=== PATIENT | female | born 1995 | race Caucasian/White ===

== ENCOUNTER → 2017-01-09 | Outpatient (CLI) | payer SELFPAY ==
--- NOTE | 2017-01-09 17:40 | RADIOLOGY REPORT (SQ) ---
EXAM DESCRIPTION: ANKLE LEFT COMPLETE COMPLETED DATE/TIME: 01/09/2017 5:20 pm REASON FOR STUDY: OTHER SPECIFIED JOINT DISORDERS, LEFT ANKLE AND FOOT M25.872 OTHER SPECIFIED JOIN T DISORDERS, LEFT ANKLE AND FOOT COMPARISON: None. NUMBER OF VIEWS: Three views. TECHNIQUE: AP, lateral, and oblique radiographic images acquired of the left ankle. LIMITATIONS: Lateral film is rotated FINDINGS: MINERALIZATION: Normal. BONES: No acute fracture or dislocation. No worrisome bone lesions. JOINTS: Lateral film is rotated. Ankle joint effusion could not be evaluated SOFT TISSUES: No soft tissue swelling. No foreign body. OTHER: No other significant finding. IMPRESSION: No acute fracture or malalignment TECHNICAL DOCUMENTATION: JOB ID: [id number] [employer]- All Rights Reserved
== END ==
LOC: OD 17:07
PROVIDERS: ATTEND Internal Medicine
DX: M25.572 Pain in left ankle and joints of left foot (principal)

== ENCOUNTER 2017-09-15 21:57 | Emergency (ER) | payer OTHER, MEDICAID ==
[2017-09-15 22:20] VITALS: BP 105/75
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
[2017-09-15] MEDS ORDERED: ACETAMINOPHEN 325 MG TABLET PO ONE (22:46)
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
== END 2017-09-16 00:22 | disposition home or self-care (01) ==
LOC: ER 21:57
DX: S16.1XXA Strain of muscle, fascia and tendon at neck level, initial encounter (principal); S40.012A Contusion of left shoulder, initial encounter; R51 Headache; V43.52XA Car driver injured in collision with other type car in traffic accident, initial encounter; Z90.49 Acquired absence of other specified parts of digestive tract
CPT/HCPCS: 72050; 99284

== ENCOUNTER 2019-09-26 17:39 | Emergency (ER) | payer MEDICAID, OTHER ==
[2019-09-26] MEDS ORDERED: NORMAL SALINE 1000 ML 1,000 ML IV PRN (18:20)
[2019-09-26] MEDS ORDERED: ONDANSETRON HCL INJ/PF 4 MG/2 ML SDV IV ONE (18:20)
--- NOTE | 2019-09-26 18:27 | ER Document Report ---
ED Medical Screen (RME) - General Chief Complaint: Vomiting Stated Complaint: FEVER,VOMITING Time Seen by Provider: 09/26/19 18:18 Primary Care Provider: KYLEE CHILD MD [Primary Care Provider] - Follow up as needed Information source: Patient TRAVEL OUTSIDE OF THE [place] IN LAST 30 DAYS: No - HPI Patient complains to provider of: Abdominal pain with nausea and vomiting Onset: Yesterday Onset/Duration: Sudden Quality of pain: Achy, Cramping, Pressure - Related Data Allergies/Adverse Reactions: azithromycin [Azithromycin] Allergy (Severe, Verified 07/08/16 23:25) codeine [Codeine] Allergy (Severe, Verified 07/08/16 23:25) guaifenesin [From Robitussin A-C] Allergy (Severe, Verified 07/08/16 23:25) Penicillins Allergy (Severe, Verified 07/08/16 23:25) Difficulty breathing amitriptyline Allergy (Verified 09/26/19 18:02) doxycycline [Doxycycline] Allergy (Verified 07/08/16 23:25) erythromycin base [Erythromycin Base] Allergy (Verified 07/08/16 23:25) influenza virus vaccine tri-split 2 [From Fluarix [id number] (PF)] Allergy (Verified 07/08/16 23:25) Home Medications: Singulair Past Medical History - Social History Frequency of alcohol use: None Drug Abuse: None Pulmonary Medical History: Reports: Hx Asthma, Hx Bronchitis, Hx Pneumonia Denies: Hx Tuberculosis Neurological Medical History: Denies: Hx Seizures Renal/ Medical History: Denies: Hx Peritoneal Dialysis GI Medical History: Reports: Hx Gastroesophageal Reflux Disease Musculoskeltal Medical History: Reports Hx Musculoskeletal Deformity, Reports Hx Musculoskeletal Trauma - right ankle Psychiatric Medical History: Reports: Hx Anxiety, Hx Obsessive Compulsive Disorder Traumatic Medical History: Reports: Hx Fractures - left ankle Past Surgical History: Reports: Hx Abdominal Surgery - retained stone, Hx Adenoidectomy, Hx Cholecystectomy, Hx Orthopedic Surgery - right ankle, Hx Tonsillectomy - tonsil/adenoids at 6 yrs old. Denies: Hx Hysterectomy, Hx Pacemaker - Immunizations Immunizations up to date: Yes Hx Diphtheria, Pertussis, Tetanus Vaccination: Yes Physical Exam - Vital signs Vitals: Temp Pulse Resp BP Pulse Ox 101 F H 122 H 16 106/76 95 09/26/19 17:43 09/26/19 17:43 09/26/19 17:43 09/26/19 17:43 09/26/19 17:43 - Abdominal Tenderness: Tender Course - Vital Signs Vital signs: Temp Pulse Resp BP Pulse Ox 101 F H 122 H 16 106/76 95 09/26/19 17:43 09/26/19 17:43 09/26/19 17:43 09/26/19 17:43 09/26/19 17:43 Doctor's Discharge - Discharge Referrals: KYLEE CHILD MD [Primary Care Provider] - Follow up as needed
[2019-09-26] MEDS ORDERED: ONDANSETRON HCL 8 MG TABLET PO ONE (18:38)
[2019-09-26 18:53] LABS: HEMATOCRIT 40.4 % (36.0-47.0); HEMOGLOBIN 13.9 g/dL (12.0-15.5); MEAN CORPUSCULAR HEMOGLOBIN 30.6 pg (27.0-33.4); MEAN CORPUSCULAR HGB CONC 34.3 g/dL (32.0-36.0); MEAN CORPUSCULAR VOLUME 89 fl (80-97); PLATELET COUNT 237 10^3/uL (150-450); RED BLOOD COUNT 4.54 10^6/uL (3.72-5.28); RED CELL DISTRIBUTION WIDTH 12.7 % (11.5-14.0); WHITE BLOOD COUNT 12.3 10^3/uL (4.0-10.5)
[2019-09-26 19:09] LABS: ALBUMIN 4.9 g/dL (3.5-5.0); ALKALINE PHOSPHATASE 74 U/L (38-126); ANION GAP 11 (5-19); ASPARTATE AMINO TRANSFERASE 25 U/L (14-36); BILIRUBIN,TOTAL 0.7 mg/dL (0.2-1.3); BLOOD UREA NITROGEN 10 mg/dL (7-20); CALCIUM 9.6 mg/dL (8.4-10.2); CARBON DIOXIDE 27 mmol/L (22-30); CHLORIDE 100 mmol/L (98-107); GLUCOSE 106 mg/dL (75-110); POTASSIUM 4.3 mmol/L (3.6-5.0); TOTAL PROTEIN 7.8 g/dL (6.3-8.2)
[2019-09-26 19:18] LABS: ABSOLUTE MONOCYTES # (MANUAL) 0.5 10^3/uL (0.1-1.4); BASOPHILS % (MANUAL) 0 % (0-2); EOSINOPHILS % (MANUAL) 0 % (0-6); LYMPHOCYTES % (MANUAL) 8 % (13-45); MONOCYTES % (MANUAL) 4 % (3-13); SEGMENTED NEUTROPHILS % (MAN) 88 % (42-78); TOTAL CELLS COUNTED 100
[2019-09-26 19:21] LABS: PLATELET COMMENT ADEQUATE; RBC MORPHOLOGY COMMENT NORMO-CYTIC/CHROMIC
[2019-09-26] MEDS ORDERED: KETOROLAC TROMETHAMINE INJ/PF 30 MG/1 ML SDV IV ONE (19:55)
--- NOTE | 2019-09-26 19:58 | ER Document Report ---
ED General - General Chief Complaint: Vomiting Stated Complaint: FEVER,VOMITING Time Seen by Provider: 09/26/19 18:18 Primary Care Provider: KYLEE CHILD MD [Primary Care Provider] - Follow up as needed Notes: Patient is a 23-year-old white female with a past medical history significant for prior multiple right-sided ovarian cysts with surgical removal, appendectomy and cholecystectomy who presents to the emergency department with a chief complaint of feeling "sick". Patient reports she was not feeling very well last night, was achy all over notes that her grandmother gave her ibuprofen before bed. She states this morning upon waking she felt worse. Describes widespread body aches, sore throat, cough and abdominal pain associated with nausea and vomiting. She denies any diarrhea or constipation. She denies any recent travel or known sick contacts. Last dose of antipyretics this morning at 8 AM. Denies any urinary complaints. TRAVEL OUTSIDE OF THE [place] IN LAST 30 DAYS: No - Related Data Allergies/Adverse Reactions: azithromycin [Azithromycin] Allergy (Severe, Verified 07/08/16 23:25) codeine [Codeine] Allergy (Severe, Verified 07/08/16 23:25) guaifenesin [From Robitussin A-C] Allergy (Severe, Verified 07/08/16 23:25) Penicillins Allergy (Severe, Verified 07/08/16 23:25) Difficulty breathing amitriptyline Allergy (Verified 09/26/19 18:02) doxycycline [Doxycycline] Allergy (Verified 07/08/16 23:25) erythromycin base [Erythromycin Base] Allergy (Verified 07/08/16 23:25) influenza virus vaccine tri-split 2 [From Fluarix [id number] (PF)] Allergy (Verified 07/08/16 23:25) Home Medications: Singulair Past Medical History - General Information source: Patient - Social History Smoking Status: Never Smoker Frequency of alcohol use: None Drug Abuse: None Family History: Reviewed & Not Pertinent Patient has suicidal ideation: No Patient has homicidal ideation: No Pulmonary Medical History: Reports: Hx Asthma, Hx Bronchitis, Hx Pneumonia Denies: Hx Tuberculosis Neurological Medical History: Denies: Hx Seizures Renal/ Medical History: Denies: Hx Peritoneal Dialysis GI Medical History: Reports: Hx Gastroesophageal Reflux Disease Musculoskeletal Medical History: Reports Hx Musculoskeletal Deformity, Reports Hx Musculoskeletal Trauma - right ankle Psychiatric Medical History: Reports: Hx Anxiety, Hx Obsessive Compulsive Disorder Traumatic Medical History: Reports: Hx Fractures - left ankle Past Surgical History: Reports: Hx Abdominal Surgery - retained stone, Hx Adenoidectomy, Hx Cholecystectomy, Hx Orthopedic Surgery - right ankle, Hx Tonsillectomy - tonsil/adenoids at 6 yrs old. Denies: Hx Hysterectomy, Hx Pacemaker - Immunizations Immunizations up to date: Yes Hx Diphtheria, Pertussis, Tetanus Vaccination: Yes Review of Systems - Review of Systems Constitutional: Chills, Fever EENT: Throat pain Respiratory: Cough Gastrointestinal: Abdominal pain, Nausea, Vomiting Genitourinary: No symptoms reported Female Genitourinary: Irregular period Physical Exam - Vital signs Vitals: Temp Pulse Resp BP Pulse Ox 101 F H 122 H 16 106/76 95 09/26/19 17:43 09/26/19 17:43 09/26/19 17:43 09/26/19 17:43 09/26/19 17:43 - General General appearance: Appears well, Alert In distress: None Notes: Appears ill, nontoxic - HEENT Head: Normocephalic, Atraumatic Eyes: Normal Conjunctiva: Normal Extraocular movements intact: Yes Eyelashes: Normal Pupils: PERRL Ears: Normal External canal: Normal Tympanic membrane: Normal Nasal: Normal Mouth/Lips: Normal Mucous membranes: Normal Pharynx: Other - Injected posterior pharynx without exudate. No edema. Uvula midline without edema or erythema. Airway patent. Patient handling secretions well. No sublingual or submental swelling. No trismus. Neck: Anterior cervical chain - Tender - Respiratory Respiratory status: No respiratory distress Chest status: Nontender Breath sounds: Normal Chest palpation: Normal - Cardiovascular Rhythm: Regular Heart sounds: Normal auscultation - Abdominal Inspection: Normal Distension: No distension Bowel sounds: Normal Tenderness: Tender - Right lower quadrant Organomegaly: No organomegaly - Back Back: No: CVA tenderness - Neurological Neuro grossly intact: Yes Cognition: Normal Orientation: AAOx4 Sophy Coma Scale Eye Opening: Spontaneous Vidor Coma Scale Verbal: Oriented Sophy Coma Scale Motor: Obeys Commands Vidor Coma Scale Total: 15 Speech: Normal - Psychological Associated symptoms: Normal affect, Normal mood - Skin Skin Temperature: Warm Skin Moisture: Dry Skin Color: Normal Course - Re-evaluation Re-evalutation: 09/26/19 23:02 Reevaluation at this time, patient is resting comfortably in the room. She looks and reports that she feels better. A pulse recheck at this time shows her to be at 112 bpm. Her heart rate is improving gradually. Her work-up is lar dorothy unremarkable. Pending swab cultures. Suspect a viral syndrome. Counseled her at length regarding the importance of outpatient follow-up and advised she return here or any ER immediately with any new, persistent or worsening symptoms. She and her grandmother verbalized understood and agreed. She will institute a clear liquid diet for the next 24 hours with a slow gradual return to a brat diet and then normal diet as tolerated. Sent home with a prescription for Zofran. - Vital Signs Vital signs: Temp Pulse Resp BP Pulse Ox 100.4 F 127 H 14 103/50 L 98 09/26/19 21:41 09/26/19 21:41 09/26/19 21:41 09/26/19 21:41 09/26/19 21:41 - Laboratory Result Diagrams: 09/26/19 18:30 09/26/19 18:30 Laboratory results interpreted by me: 09/26/19 09/26/19 18:30 20:10 WBC 12.3 H Seg Neuts % (Manual) 88 H Lymphocytes % (Manual) 8 L Abs Neuts (Manual) 10.8 H Urine Protein 30 H Discharge - Discharge Clinical Impression: Viral syndrome Fever Qualifiers: Fever type: unspecified Qualified Code(s): R50.9 - Fever, unspecified Abdominal pain Qualifiers: Abdominal location: unspecified location Qualified Code(s): R10.9 - Unspecified abdominal pain Nausea and vomiting Qualifiers: Vomiting type: unspecified Vomiting Intractability: unspecified Qualified Code(s): R11.2 - Nausea with vomiting, unspecified Condition: Stable Disposition: HOME, SELF-CARE Instructions: Viral Syndrome ([facility]) Additional Instructions: Follow-up with your regular doctor in 2 to 3 days for reevaluation. Return here or any ER immediately with any new, persistent or worsening symptoms. Prescriptions: Ondansetron [Zofran Odt 4 mg Tablet] 4 mg PO Q6 PRN #30 tab.rapdis PRN Reason: Referrals: KYLEE CHILD MD [Primary Care Provider] - Follow up as needed
--- NOTE | 2019-09-26 20:01 | RADIOLOGY REPORT (SQ) ---
EXAM DESCRIPTION: CT ABD/PELVIS NO ORAL OR IV COMPLETED DATE/TIME: 09/26/2019 7:36 pm REASON FOR STUDY: pain COMPARISON: 07/12/2016 TECHNIQUE: CT scan of the abdomen and pelvis performed without intravenous or oral contrast. Images reviewed with lung, soft tissue, and bone windows. Reconstructed coronal and sagittal MPR images revi ewed. All images stored on PACS. All CT scanners at this facility use dose modulation, iterative reconstruction, and/or weight based d osing when appropriate to reduce radiation dose to as low as reasonably achievable (ALARA). [facility]: Dose Right [facility]: CareDose [facility]: Dose Right [facility]: Teradose 4D [facility]: Smart [employer] RADIATION DOSE: CT Rad equipment meets quality standard of care and radiation dose reduction techniq ues were employed. CTDIvol: 4.9 mGy. DLP: 266 mGy-cm.mGy. LIMITATIONS: None. FINDINGS: LOWER CHEST: No significant findings. No nodules or infiltrates. NON-CONTRASTED LIVER, SPLEEN, ADRENALS: Evaluation limited by lack of IV contrast. No identified sign ificant masses. PANCREAS: No masses. No peripancreatic inflammatory changes. GALLBLADDER: Surgically absent. RIGHT KIDNEY AND URETER: No suspicious masses. Assessment limited by lack of IV contrast. No signif icant calcifications. No hydronephrosis or hydroureter. LEFT KIDNEY AND URETER: No suspicious masses. Assessment limited by lack of IV contrast. No signifi cant calcifications. No hydronephrosis or hydroureter. AORTA AND RETROPERITONEUM: No aneurysm. No retroperitoneal masses or adenopathy. BOWEL AND PERITONEAL CAVITY: No obvious masses or inflammatory changes. No free fluid. APPENDIX: Surgically absent. PELVIS, BLADDER, AND ABDOMINAL WALL:The bladder is unremarkable. Cannot exclude a 2 cm right adnexal cyst. BONES: No significant findings. OTHER: No other significant finding. IMPRESSION: Cannot exclude a 2 cm right ovarian cyst. Consider ultrasound. No other significant fi nding in the abdomen or pelvis. COMMENT: Quality ID # [id number]: Final reports with documentation of one or more dose reduction techniques (e.g., Automated exposure control, adjustment of the mA and/or kV according to patient size, use of iterative reconstruction technique) TECHNICAL DOCUMENTATION: JOB ID: [id number] 2010 [email or web address]- All Rights Reserved Reading location - IP/workstation name: [email or web address]
--- NOTE | 2019-09-26 20:04 | RADIOLOGY REPORT (SQ) ---
EXAM DESCRIPTION: CHEST 2 VIEWS COMPLETED DATE/TIME: 09/26/2019 7:33 pm REASON FOR STUDY: sob COMPARISON: 07/05/2012 EXAM PARAMETERS: NUMBER OF VIEWS: two views TECHNIQUE: Digital Frontal and Lateral radiographic views of the chest acquired. RADIATION DOSE: NA LIMITATIONS: none FINDINGS: LUNGS AND PLEURA: No opacities, masses or pneumothorax. No pleural effusion. MEDIASTINUM AND HILAR STRUCTURES: No masses or contour abnormalities. HEART AND VASCULAR STRUCTURES: Heart normal size. No evidence for failure. BONES: No acute findings. HARDWARE: None in the chest. OTHER: No other significant finding. IMPRESSION: NO ACUTE RADIOGRAPHIC FINDING IN THE CHEST. TECHNICAL DOCUMENTATION: JOB ID: [id number] 2010 [employer]- All Rights Reserved Reading location - IP/workstation name: [email or web address]
[2019-09-26 20:34] LABS: APPEARANCE,URINE CLEAR; BILIRUBIN,URINE NEGATIVE (NEGATIVE); COLOR,URINE YELLOW; GLUCOSE, URINE NEGATIVE (NEGATIVE); KETONES,URINE NEGATIVE (NEGATIVE); LEUKOCYTE ESTERASE,URINE NEGATIVE (NEGATIVE); NITRITE,URINE NEGATIVE (NEGATIVE); PROTEIN,URINE 30 mg/dL (NEGATIVE); URINE SPECIFIC GRAVITY 1.016; UROBILINOGEN,URINE NEGATIVE mg/dL (<2.0)
[2019-09-26 20:41] LABS: A TYPE INFLUENZA AG NEGATIVE (NEGATIVE); B INFLUENZA AG NEGATIVE (NEGATIVE)
[2019-09-26] MEDS ORDERED: NORMAL SALINE 1000 ML 1,000 ML IV ONE ×2 (20:45→21:58)
[2019-09-26] MEDS ORDERED: METOCLOPRAMIDE HCL INJ/PF 10 MG/2 ML SDV IV ONE (20:45)
--- NOTE | 2019-09-26 21:00 | RADIOLOGY REPORT (SQ) ---
EXAM DESCRIPTION: [employer]: US PELVIS CLINICAL HISTORY: 23 years Female; lower ab pain, R cyst on CT; TECHNIQUE: Transabdominal pelvic ultrasound was performed. COMPARISON: CT 09/26/2019 FINDINGS: Uterus: 7.4 x 4.5 x 3.6 cm, with 15 mm endometrial stripe. No uterine masses. Cervix 2 cm Right ovary: 4.5 x 2.5 x 2.4 cm. No cysts are identified.. Normal vascular flow on Doppler. Left ovary: 2.7 x 2.3 x 2.9 cm. Normal vascular flow on Doppler. There is a small amount of free fluid in the right adnexa. IMPRESSION: 1. No ovarian mass or torsion 2. Small amount of free fluid in the right adnexa.
[2019-09-26 23:48] VITALS: BP 110/64
== END 2019-09-26 23:47 | disposition home or self-care (01) ==
LOC: ER 17:39
DX: B34.9 Viral infection, unspecified (principal); R11.2 Nausea with vomiting, unspecified; R50.9 Fever, unspecified; J02.9 Acute pharyngitis, unspecified; R10.30 Lower abdominal pain, unspecified; R10.813 Right lower quadrant abdominal tenderness; N92.6 Irregular menstruation, unspecified; J45.909 Unspecified asthma, uncomplicated; Z79.899 Other long term (current) drug therapy; Z88.1 Allergy status to other antibiotic agents; Z88.6 Allergy status to analgesic agent; Z88.5 Allergy status to narcotic agent; Z88.8 Allergy status to other drugs, medicaments and biological substances; Z88.7 Allergy status to serum and vaccine
CPT/HCPCS: 99284; 96361; 96374; 96375; 36415; 87040; 87070; 87880; 84702; 83605; 83690; 85025; 80053; 81001; 87804; 71046; 76856; 93976; 74176; J1885; J2765; J2405; J7030